=== PATIENT | female | born 1960 | race Caucasian/White ===

== ENCOUNTER 2016-12-31 00:17 | Inpatient (IN) | payer OTHER ==
[2016-12-31] VITALS (11 sets, daily range): BP systolic 113–141; BP diastolic 61–75; PULSE 57–72; RESP 17–56; Ht 160 cm; Wt 91.0 kg
[~2016-12-31] VITALS: Ht 160 cm; Wt 91.0 kg
[~2016-12-31 00:17] MED LIST: LEVO75TA5 PO; LISI-313 PO; SIMV10TA PO
[2016-12-31] MEDS ORDERED: LORAZEPAM 0.5 MG TAB PO PRN (01:00)
[2016-12-31] MEDS ORDERED: NITROGLYCERIN (SL) 0.4 MG TAB SL PRN (01:00)
[2016-12-31] MEDS ORDERED: ALBUTEROL/IPRATROPIUM (NEB) 3 ML AMP NEB SCH (01:00)
[2016-12-31] MEDS ORDERED: NACL 0.9% 3 ML SYG IV SCH (01:00)
[2016-12-31] MEDS ORDERED: ACETAMINOPHEN 325 MG TAB PO PRN (01:00)
[2016-12-31] MEDS ORDERED: ONDANSETRON 4 MG INJ IV PRN (01:00)
[2016-12-31] MEDS ORDERED: morphine 2 MG INJ IV PRN (01:00)
[2016-12-31] MEDS ORDERED: CEFTRIAXONE 1 GM/50 ML (PMX) 50 ML IV SCH (01:00)
[2016-12-31] MEDS ORDERED: ONDANSETRON 4 MG TAB PO PRN (01:00)
--- NOTE | 2016-12-31 03:50 | HP ---
Date/Time of Note Date/Time of Note DATE: 12/31/16 TIME: 03:07 Assessment/Plan VTE Prophylaxis VTE Prophylaxis Intervention: other (Lovanox) Lines/Catheters IV Catheter Type (from [facility]): Peripheral IV Assessment/Plan Assessment/Plan 1) Dyspnea on Exertion - Admit to Telemetry - NPO, just in case a Nuclear Stress Test or similar study is planned once she is evaluated by Cardiology - CONSULT: Cardiology 2) Chest Pain - resolved 3) Family history of Sudden Cardiac HPI/ROS Admit Date/Time Admit Date/Time Dec 31, 2016 at 00:17 Hx of Present Illness CC: They sent me here for a Nuclear Stress Test HPI: Patient is transferred her from [facility] as she is capitated here and she was stable for transfer. Patient initially presented there for increasing shortness of breath with activity associated with skipped beats/ palpitations. Patient states she has had these skipped beats for a long time, but they have become more noticeable over this past week as she has become more SOB with exertion. She lives in a 3-story house, and climbing the stairs makes her extremely SOB and causes her right leg to hurt.. Right now, she has no chest pain or leg pain "because they gave me an aspirin. She has had no nausea, vomiting, sweating or back pain, but 12/29/16, she became extremely fatigued..She also mentions that she had an area of numbness on her right anterior thig, and ittoo, has resolved. She had a cardiac work-up about 5 years ago at this hospital, and nothing particular was found, per patient. Of concern is that both of her parents young, from heart attacks. Her mom was 48 and her father 51. The history and ER course as by the [facility] ER Physician: Her initial complaints were of palpitations, intermittent for 2 days, exertional SOB and episodes of chest pains. On arrival to their ER, her chest pain was a 2/10 on the pain scale. He states that she presented with palpitations and feels them for just 1 to 2 seconds in the heart area. The onset was 3 days ago. He course/duration of symptoms is episodic: 40 total episodes and lasting 2 seconds. Character of symptoms, skipping beats. The degree at onset was minimal. The degree at present is minimal. He documented that she had no risk factors, that there were no prior episodes and no associated symptoms. ROS Constitutional: fatigue, No chills, No febrile Eyes: No discharge, No visual change ENT: No congestion, No discharge, No sore throat Respiratory: shortness of breath (with exertion), No cough, No pain, No wheezing Cardiovascular: palpitations (occasional), No chest pain (Not currently), No edema Gastrointestinal: No diarrhea, No nausea, No pain, No vomiting Skin: No pruritis, No rash Neurologic: No confusion, No dizziness, No headache, No syncope Endocrine: No polydypsia, No polyuria Lymphatic: No adenopathy, No tender nodes Immunologic: No pruritis, No rhinitis PMH/Family/Social Family History Significant Family History: heart disease (Both parents young, from MIs - Mom 48 and Dad 51) Social History Alcohol Use: none Smoking Status: Never smoker Drug Use: none Exam/Review of Systems Vital Signs Vitals Vital Signs Date Time Temp Pulse Resp B/P Pulse Ox O2 Delivery O2 Flow Rate FiO2 12/31/16 00:36 98.8 64 18 141/70 95 Exam Constitutional: alert, oriented, well developed Psych: nl mood/affect, no complaints Head: atraumatic, normocephalic Eyes: EOMI, nl conjunctiva, nl sclera ENMT: mucosa pink and moist, nl external ears & nose Neck: non-tender, supple Respiratory: clear to auscultation, normal air movement Cardiovascular: nl pulses, regular rate and rhythm, No edema Gastrointestinal: nl liver, spleen, non-tender, soft Musculoskeletal: nl extremities to inspection Extremities: normal pulses Neurological: EQUITY DIRECTOR II-XII intact, nl mental status, nl speech, nl strength Skin: nl turgor, No rash or lesions Lymph: nl lymph nodes (Cervical) Medications Medications Current Medications Lorazepam (Ativan) 0.5 mg Q8H PRN PO ANXIETY; Start 12/31/16 at 01:00 Ondansetron HCl (Zofran Tab) 4 mg Q6H PRN PO NAUSEA AND/OR VOMITING; Start at 01:00 Ondansetron HCl (Zofran Inj) 4 mg Q6H PRN IV NAUSEA AND/OR VOMITING; Start at 01:00 Aspirin (Aspirin) 81 mg DAILY PO ; Start 12/31/16 at 09:00 Nitroglycerin (Nitroglycerin (Sl Tab) 0.4 Mg) 1 tab Q5M PRN SL CHEST PAIN; Start 12/31/16 at 01:00 Acetaminophen (Tylenol Tab) 650 mg Q6H PRN PO PAIN LEVEL 1-3 OR FEVER; Start at 01:00 Morphine Sulfate (morphine) 2 mg Q4H PRN IV PAIN LEVEL 7-10; Start 12/31/16 at 01:00 Famotidine (Pepcid) 20 mg Q12 PO ; Start 12/31/16 at 09:00 Lisinopril (Zestril) 5 mg DAILY PO ; Start 12/31/16 at 09:00 Procedures Procedures Labs from [facility] done 12/30/16 WBC = 5.0 with normal differential H/H = 14.3/41.0 with normal indices PLT = 207 Na+ = 140 K+ = 3.3 (given replacement in the [facility] ER Cl- = 104 HCO3 = 26 BUN/CR = 18/0.8 Glu = 132 (random) Lactic Acid = 1.8 D-Dimer = 0.26 Troponin = 0.0 BNP = 66 INR = 1.00 Mononucleosis Screen: NEGATIVE AST = 34 ALT = 27 Mg = 2.1 Remainder of CMP is WNL CXR done at [facility] showed no acute disease process as interpreted by the ER physician EKG, I do not see a report on the firstEKG, other than it is listed as "abnormal " 2nd EKG shows NSR without any ST-T wave changes DEBORAH CHRISTIAN DO Dec 31, 2016 03:20
[2016-12-31] MEDS: SOD CHLORIDE 0.9% 1,000 ML IV SCH ×3 (04:23→23:24)
[2016-12-31 08:27] LABS: CREATINE KINASE 89 IU/L (23-200)
[2016-12-31 08:32] LABS: ADD SCAN DIFF NO
[2016-12-31 08:37] LABS: CK-MB 0.42 ng/ml (0.0-2.4)
[2016-12-31 08:38] LABS: BASOPHIL # 0.1 10^3/ul (0.0-0.1); BASOPHILS % 1.3 % (0.0-2.0); EOSINOPHILS # 0.3 10^3/ul (0.0-0.5); HEMATOCRIT 38.7 % (37.0-47.0); HEMOGLOBIN 12.9 g/dl (12.0-16.0); LYMPHOCYTES # 1.9 10^3/ul (0.8-2.9); MEAN CORPUSCULAR HEMOGLOBIN 30.1 pg (29.0-33.0); MEAN CORPUSCULAR HGB CONC 33.3 g/dl (32.0-37.0); MEAN CORPUSCULAR VOLUME 90.2 fl (82.0-101.0); MEAN PLATELET VOLUME 10.2 fl (7.4-10.4); MONOCYTE # 0.3 10^3/ul (0.3-0.9); MONOCYTES % 6.9 % (0.0-11.0); NEUTROPHIL # 1.9 10^3/ul (1.6-7.5); NEUTROPHILS % 42.6 % (39.0-77.0); PLATELET COUNT 191 10^3/UL (140-415); RED BLOOD COUNT 4.29 10^6/ul (4.20-5.40); RED CELL DISTRIBUTION WIDTH 12.7 % (11.5-14.5); WHITE BLOOD COUNT 4.5 10^3/ul (4.8-10.8)
[2016-12-31 08:56] LABS: POTASSIUM 3.6 mmol/L (3.5-5.1)
[2016-12-31 08:59] LABS: CREATININE 0.71 mg/dl (0.44-1.00)
[2016-12-31 09:00] LABS: CREATINE KINASE 80 IU/L (23-200)
[2016-12-31 09:01] LABS: TROPONIN-I < 0.012 ng/ml (0.00-0.12)
[2016-12-31 09:10] LABS: CK-MB 0.34 ng/ml (0.0-2.4)
[2016-12-31 09:16] LABS: TROPONIN-I < 0.012 ng/ml (0.00-0.12)
[2016-12-31] MEDS: LISINOPRIL 5 MG TAB PO SCH (09:33)
[2016-12-31] MEDS: FAMOTIDINE 20 MG TAB PO SCH ×2 (09:33→21:34)
[2016-12-31] MEDS: ASPIRIN 81 MG TAB PO SCH (09:33)
[2016-12-31] MEDS: LEVOTHYROXINE 75 MCG TAB PO SCH (09:35)
[2016-12-31] MEDS: ENOXAPARIN 40 MG/0.4 ML SYG SC SCH (09:42)
--- NOTE | 2016-12-31 13:38 | PN ---
Date/Time of Note Date/Time of Note DATE: 12/31/16 TIME: 13:28 Assessment/Plan VTE Prophylaxis VTE Prophylaxis Intervention: LMWH Lines/Catheters IV Catheter Type (from [facility]): Peripheral IV Assessment/Plan Assessment/Plan 1. Palpitation with generalized weakness, r/o arrhythmia, monitor ECG, check TSH, cardiology consultation 2. Chest pain, negative troponin, follow up with cardiology 3. Hypertension, stable 4. Dyslipidemia, on statin 5. Hypothyroidism, on supplement 6. Family history of Sudden Cardiac 7. DVT prophylaxis: lovenox Subjective 24 Hr Interval Summary Free Text/Dictation intermittent palpitation with genralized weakness for one week. Lower retrosternal chest pain Exam/Review of Systems Vital Signs Vitals Vital Signs Date Time Temp Pulse Resp B/P Pulse Ox O2 Delivery O2 Flow Rate FiO2 12/31/16 12:51 57 12/31/16 11:45 98.9 56 113/61 96 Intake and Output 12/30/16 12/30/16 12/31/16 15:00 23:00 07:00 Intake Total 300 ml Balance 300 ml Exam Constitutional: alert, oriented, well developed Psych: nl mood/affect, no complaints Head: atraumatic, normocephalic Eyes: EOMI, PERRL, nl conjunctiva, nl lids ENMT: nl external ears & nose, nl lips & teeth, nl nasal mucosa & septum Neck: non-tender, supple Respiratory: clear to auscultation, normal air movement, No congested cough, No crackles/rales, No diminished breath sounds, No intercostal retraction, No labored breathing, No other, No respirations, No tactile fremitus, No wheezing Cardiovascular: nl pulses, regular rate and rhythm, No S3, No S4, No bruits, No diastolic murmur, No edema, No gallop, No irregular rhythm, No jugular venous distention (JVD), No murmurs/extra sounds, No other, No rub, No systolic murmur Gastrointestinal: nl liver, spleen, non-tender, soft, No ascites, No bowel sounds, No distended, No firm, No hepatomegaly, No mass , No other, No rebound or guarding, No splenomegaly, No surgical scars, No tender Musculoskeletal: nl extremities to inspection Extremities: normal pulses, No calf tenderness, No clubbing, No cyanosis, No edema, No other, No palpable cord, No pitting pedal edema, No tenderness Neurological: NAILHEAD PUNCHER II-XII intact, nl mental status, nl speech, nl strength Skin: nl turgor Lymph: nl lymph nodes Results Result Diagram: 12/31/1614 12/31/1614 Results 24 hrs Laboratory Tests Test 12/31/16 01:03 12/31/16 07:14 Creatine Kinase 89 80 Creatine Kinase Index 0.5 0.4 Creatinine Kinase MB (Mass) 0.42 0.34 Troponin I < 0.012 < 0.012 Anion Gap 15 Basophils # 0.1 Basophils % 1.3 Blood Urea Nitrogen 14 Calcium Level 9.0 Carbon Dioxide Level 31 Chloride Level 101 Creatinine 0.71 Eosinophils # 0.3 Eosinophils % 6.0 Glucose Level 82 Hematocrit 38.7 Hemoglobin 12.9 Lymphocytes # 1.9 Lymphocytes % 43.0 Magnesium Level 2.0 Mean Corpuscular Hemoglobin 30.1 Mean Corpuscular Hemoglobin Concent 33.3 Mean Corpuscular Volume 90.2 Mean Platelet Volume 10.2 Monocytes # 0.3 Monocytes % 6.9 Neutrophils # 1.9 Neutrophils % 42.6 Nucleated Red Blood Cells # 0.0 Nucleated Red Blood Cells % 0.0 Platelet Count 191 Potassium Level 3.6 Red Blood Count 4.29 Red Cell Distribution Width 12.7 Sodium Level 143 White Blood Count 4.5 L Medications Medications Current Medications Lorazepam (Ativan) 0.5 mg Q8H PRN PO ANXIETY; Start 12/31/16 at 01:00 Ondansetron HCl (Zofran Tab) 4 mg Q6H PRN PO NAUSEA AND/OR VOMITING; Start at 01:00 Ondansetron HCl (Zofran Inj) 4 mg Q6H PRN IV NAUSEA AND/OR VOMITING; Start at 01:00 Aspirin (Aspirin) 81 mg DAILY PO Last administered on 12/31/16t 09:33; Admin Dose 81 MG; Start 12/31/16 at 09:00 Nitroglycerin (Nitroglycerin (Sl Tab) 0.4 Mg) 1 tab Q5M PRN SL CHEST PAIN; Start 12/31/16 at 01:00 Acetaminophen (Tylenol Tab) 650 mg Q6H PRN PO PAIN LEVEL 1-3 OR FEVER; Start at 01:00 Morphine Sulfate (morphine) 2 mg Q4H PRN IV PAIN LEVEL 7-10; Start 12/31/16 at 01:00 Famotidine (Pepcid) 20 mg Q12 PO Last administered on 12/31/16 09:33; Admin Dose 20 MG; Start 12/31/16 at 09:00 Lisinopril 5 mg 5 mg DAILY PO Last administered on 12/31/16 09:33; Admin Dose 5 MG; Start 12/31/16 at 09:00 Sodium Chloride (NS) 1,000 ml @ 100 mls/hr Q10H IV Last administered on 04:23; Admin Dose 100 MLS/HR; Start 12/31/16 at 03:24 Enoxaparin Sodium (Lovenox) 40 mg DAILY SC Last administered on 12/31/16 09:42 ; Admin Dose 40 MG; Start 12/31/16 at 09:00 TENZIN BAUTISTA MD Dec 31, 2016 13:37
--- NOTE | 2016-12-31 18:33 | CONS ---
Date/Time of Note Date/Time of Note DATE: 12/31/16 TIME: 18:19 Assessment/Plan Assessment/Plan Chief Complaint/Hosp Course Assessment: Chest pain and dyspnea on exertion - ruled out for myocardial infarction Hypertension Dyslipidemia Family history of premature coronary artery disease Hypothyroidism - per primary team Recommendations: -Lexiscan SPECT tomorrow -continue lisinopril 5mg daily -continue aspirin and statin Problems: Consultation Date/Type/Reason Admit Date/Time Dec 31, 2016 at 00:17 Type of Consultation: Cardiology Reason for Consultation chest pain Hx of Present Illness The patient is a 56 year-old female who initially presented to [facility] for dyspnea and was transferred here due to her insurance capitation. She reports a one week history of worsening dyspnea on exertion with associated chest pressure and palpitations. She lives in a three-story house and previously had no trouble climbing up the stairs without much difficulty until this past week. She had a cardiac stress test and coronary angiogram approximately 10 years ago , which were normal. 14 point review of systems negative other than per HPI. Past Medical History Hypertension Dyslipidemia Hypothyroidism Past Surgical History Past Surgical Hx: no surgical history Family History Significant Family History: heart disease (myocardial infarction - mother at age 48, father at age 51) Social History Alcohol Use: none Smoking Status: Never smoker Drug Use: none Exam/Review of Systems Vital Signs Vitals Vital Signs Date Time Temp Pulse Resp B/P Pulse Ox O2 Delivery O2 Flow Rate FiO2 12/31/16 16:35 69 12/31/16 15:53 97.8 19 119/75 95 Intake and Output 12/30/16 12/30/16 12/31/16 15:00 23:00 07:00 Intake Total 300 ml Balance 300 ml Exam Constitutional: alert, oriented, well developed Psych: nl mood/affect, no complaints Eyes: nl conjunctiva, nl lids ENMT: nl external ears & nose, nl nasal mucosa & septum Neck: non-tender, supple, No jvd Respiratory: clear to auscultation, normal air movement Cardiovascular: regular rate and rhythm Gastrointestinal: non-tender, soft Musculoskeletal: nl extremities to inspection Extremities: No clubbing, No cyanosis, No edema Neurological: nl mental status, nl speech Results Result Diagram: 12/31/16 0714 12/31/16 0714 Results 24 hrs Laboratory Tests Test 12/31/16 01:03 12/31/16 07:14 12/31/16 07:15 Creatine Kinase 89 80 Creatine Kinase Index 0.5 0.4 Creatinine Kinase MB (Mass) 0.42 0.34 Troponin I < 0.012 < 0.012 Anion Gap 15 Basophils # 0.1 Basophils % 1.3 Blood Urea Nitrogen 14 Calcium Level 9.0 Carbon Dioxide Level 31 Chloride Level 101 Creatinine 0.71 Eosinophils # 0.3 Eosinophils % 6.0 Glucose Level 82 Hematocrit 38.7 Hemoglobin 12.9 Lymphocytes # 1.9 Lymphocytes % 43.0 Magnesium Level 2.0 Mean Corpuscular Hemoglobin 30.1 Mean Corpuscular Hemoglobin Concent 33.3 Mean Corpuscular Volume 90.2 Mean Platelet Volume 10.2 Monocytes # 0.3 Monocytes % 6.9 Neutrophils # 1.9 Neutrophils % 42.6 Nucleated Red Blood Cells # 0.0 Nucleated Red Blood Cells % 0.0 Platelet Count 191 Potassium Level 3.6 Red Blood Count 4.29 Red Cell Distribution Width 12.7 Sodium Level 143 White Blood Count 4.5 L Thyroid Stimulating Hormone (TSH) 7.530 H Medications Medications Current Medications Lorazepam (Ativan) 0.5 mg Q8H PRN PO ANXIETY; Start 12/31/16 at 01:00 Ondansetron HCl (Zofran Tab) 4 mg Q6H PRN PO NAUSEA AND/OR VOMITING; Start at 01:00 Ondansetron HCl (Zofran Inj) 4 mg Q6H PRN IV NAUSEA AND/OR VOMITING; Start at 01:00 Aspirin (Aspirin) 81 mg DAILY PO Last administered on 12/31/16 09:33; Admin Dose 81 MG; Start 12/31/16 at 09:00 Nitroglycerin (Nitroglycerin (Sl Tab) 0.4 Mg) 1 tab Q5M PRN SL CHEST PAIN; Start 12/31/16 at 01:00 Acetaminophen (Tylenol Tab) 650 mg Q6H PRN PO PAIN LEVEL 1-3 OR FEVER; Start at 01:00 Morphine Sulfate (morphine) 2 mg Q4H PRN IV PAIN LEVEL 7-10; Start 12/31/16 at 01:00 Famotidine (Pepcid) 20 mg Q12 PO Last administered on 12/31/16 09:33; Admin Dose 20 MG; Start 12/31/16 at 09:00 Lisinopril 5 mg 5 mg DAILY PO Last administered on 12/31/16 09:33; Admin Dose 5 MG; Start 12/31/16 at 09:00 Sodium Chloride (NS) 1,000 ml @ 100 mls/hr Q10H IV Last administered on 04:23; Admin Dose 100 MLS/HR; Start 12/31/16 at 03:24 Enoxaparin Sodium (Lovenox) 40 mg DAILY SC Last administered on 12/31/16 09:42 ; Admin Dose 40 MG; Start 12/31/16 at 09:00 YESENIA VILLASENOR MD Dec 31, 2016 18:30
[2016-12-31] MEDS ORDERED: ATORVASTATIN 10 MG TAB PO SCH (21:00)
[2017-01-01] VITALS (10 sets, daily range): BP systolic 113–150; BP diastolic 68–80; PULSE 58–82; RESP 16–19
[2017-01-01 07:47] LABS: ADD SCAN DIFF NO
[2017-01-01 07:58] LABS: BASOPHIL # 0.1 10^3/ul (0.0-0.1); BASOPHILS % 1.1 % (0.0-2.0); EOSINOPHILS # 0.2 10^3/ul (0.0-0.5); EOSINOPHILS % 5.3 % (0.0-7.0); HEMATOCRIT 37.3 % (37.0-47.0); HEMOGLOBIN 12.8 g/dl (12.0-16.0); LYMPHOCYTES # 1.7 10^3/ul (0.8-2.9); LYMPHOCYTES % 38.7 % (15.0-51.0); MEAN CORPUSCULAR HEMOGLOBIN 30.5 pg (29.0-33.0); MEAN CORPUSCULAR HGB CONC 34.3 g/dl (32.0-37.0); MONOCYTE # 0.3 10^3/ul (0.3-0.9); MONOCYTES % 7.3 % (0.0-11.0); NEUTROPHIL # 2.1 10^3/ul (1.6-7.5); NEUTROPHILS % 47.4 % (39.0-77.0); PLATELET COUNT 206 10^3/UL (140-415); RED BLOOD COUNT 4.19 10^6/ul (4.20-5.40); RED CELL DISTRIBUTION WIDTH 12.4 % (11.5-14.5); WHITE BLOOD COUNT 4.4 10^3/ul (4.8-10.8)
[2017-01-01 08:12] LABS: POTASSIUM 3.6 mmol/L (3.5-5.1)
[2017-01-01 08:14] LABS: CREATININE 0.73 mg/dl (0.44-1.00)
[2017-01-01 08:15] LABS: CALCIUM 8.7 mg/dl (8.4-10.2)
[2017-01-01] MEDS: ENOXAPARIN 40 MG/0.4 ML SYG SC SCH (08:54)
[2017-01-01] MEDS: ASPIRIN 81 MG TAB PO SCH (08:54)
[2017-01-01] MEDS: LEVOTHYROXINE 75 MCG TAB PO SCH (08:55)
[2017-01-01] MEDS: FAMOTIDINE 20 MG TAB PO SCH (08:55)
[2017-01-01] MEDS: LISINOPRIL 5 MG TAB PO SCH (08:55)
[2017-01-01] MEDS: SOD CHLORIDE 0.9% 1,000 ML IV SCH (09:24)
[2017-01-01] MEDS ORDERED: REGADENOSON 0.4 MG/5 ML SYG ONE (12:49)
[2017-01-01] MEDS ORDERED: REGADENOSON 0.4 MG/5 ML SYG IV ONE (13:00)
--- NOTE | 2017-01-01 14:29 | RADRPT ---
PROCEDURE: Nuclear medicine myocardial perfusion scan CLINICAL INDICATION: Chest pain TECHNIQUE: 31.6 mCi of technetium 99m Cardiolite was administered for the stress study. 11.0 mCi of technetium 99m Cardiolite was administered for the resting study. The patient was stressed with 0 .4 mg of Lexiscan. Images were reviewed in the short axis, vertical long axis, and horizontal long axis views. Wall motion was assessed and ejection fraction was calculated as well. Images were revi ewed on a high-resolution PACS workstation. COMPARISON: None available FINDINGS: Left ventricular size is within normal limits. There is moderate soft tissue and bowel attenuation artifact. The stress tomographic images demonstrate a normal pattern of perfusion. The resting lori ographic images demonstrate a similar pattern. There is no evidence for reversible ischemia. Wall motion is normal. The ejection fraction is calculated at 65%. IMPRESSION: 1. Negative myocardial perfusion scan. 2. There is no evidence for reversible ischemia. 3. Normal wall motion with normal ejection fraction of 65%. RPTAT: HMJB .Abel Lemos MD, MD Date Time Electronically viewed and signed by .Abel Lemos MD, MD on 01/01/2017 14:28 .B/
--- NOTE | 2017-01-01 15:07 | CONS ---
Date/Time of Note Date/Time of Note DATE: 01/01/17 TIME: 15:04 Assessment/Plan Assessment/Plan Chief Complaint/Hosp Course Assessment: Chest pain and dyspnea on exertion - ruled out for myocardial infarction, Lexiscan SPECT negative Palpitations - occasional PVCs, no sustained arrhythmia on telemetry Hypertension Dyslipidemia Family history of premature coronary artery disease Hypothyroidism - per primary team Recommendations: -continue lisinopril 5mg daily -continue aspirin and statin -no further cardiac work up at this time Problems: Consultation Date/Type/Reason Admit Date/Time Dec 31, 2016 at 00:17 Initial Consult Date Type of Consultation: Cardiology 24 HR Interval Summary Free Text/Dictation No acute events. No further chest pain or dyspnea. Lexiscan SPECT today negative for ischemia, LVEF 65%. Detailed Summary Additional Comments 14 point review of systems without changes. Exam/Review of Systems Vital Signs Vitals Vital Signs Date Time Temp Pulse Resp B/P Pulse Ox O2 Delivery O2 Flow Rate FiO2 01/01/17 13:05 97.7 60 18 137/76 96 Intake and Output 12/31/16 12/31/16 01/01/17 15:00 23:00 07:00 Intake Total 250 ml 500 ml Balance 250 ml 500 ml Exam Constitutional: alert, oriented, well developed Psych: nl mood/affect, no complaints Eyes: nl conjunctiva, nl lids ENMT: nl external ears & nose, nl nasal mucosa & septum Neck: non-tender, supple, No jvd Respiratory: clear to auscultation, normal air movement Cardiovascular: regular rate and rhythm Gastrointestinal: non-tender, soft Musculoskeletal: nl extremities to inspection Extremities: No clubbing, No cyanosis, No edema Neurological: nl mental status, nl speech Results Result Diagram: 01/01/17 0725 01/01/17 0725 Results 24 hrs Laboratory Tests Test 01/01/17 07:25 Anion Gap 14 Basophils # 0.1 Basophils % 1.1 Blood Urea Nitrogen 17 Calcium Level 8.7 Carbon Dioxide Level 28 Chloride Level 105 Creatinine 0.73 Eosinophils # 0.2 Eosinophils % 5.3 Glucose Level 98 Hematocrit 37.3 Hemoglobin 12.8 Lymphocytes # 1.7 Lymphocytes % 38.7 Mean Corpuscular Hemoglobin 30.5 Mean Corpuscular Hemoglobin Concent 34.3 Mean Corpuscular Volume 89.0 Mean Platelet Volume 10.0 Monocytes # 0.3 Monocytes % 7.3 Neutrophils # 2.1 Neutrophils % 47.4 Nucleated Red Blood Cells # 0.0 Nucleated Red Blood Cells % 0.0 Platelet Count 206 Potassium Level 3.6 Red Blood Count 4.19 L Red Cell Distribution Width 12.4 Sodium Level 143 White Blood Count 4.4 L Medications Medications Current Medications Lorazepam (Ativan) 0.5 mg Q8H PRN PO ANXIETY; Start 12/31/16 at 01:00 Ondansetron HCl (Zofran Tab) 4 mg Q6H PRN PO NAUSEA AND/OR VOMITING; Start at 01:00 Ondansetron HCl (Zofran Inj) 4 mg Q6H PRN IV NAUSEA AND/OR VOMITING; Start at 01:00 Aspirin (Aspirin) 81 mg DAILY PO Last administered on 01/01/17 08:54; Admin Dose 81 MG; Start 12/31/16 at 09:00 Nitroglycerin (Nitroglycerin (Sl Tab) 0.4 Mg) 1 tab Q5M PRN SL CHEST PAIN; Start 12/31/16 at 01:00 Acetaminophen (Tylenol Tab) 650 mg Q6H PRN PO PAIN LEVEL 1-3 OR FEVER; Start at 01:00 Morphine Sulfate (morphine) 2 mg Q4H PRN IV PAIN LEVEL 7-10; Start 12/31/16 at 01:00 Famotidine (Pepcid) 20 mg Q12 PO Last administered on 01/01/17 08:55; Admin Dose 20 MG; Start 12/31/16 at 09:00 Lisinopril 5 mg 5 mg DAILY PO Last administered on 01/01/17 08:55; Admin Dose 5 MG; Start 12/31/16 at 09:00 Sodium Chloride (NS) 1,000 ml @ 100 mls/hr Q10H IV Last administered on 04:23; Admin Dose 100 MLS/HR; Start 12/31/16 at 03:24 Enoxaparin Sodium (Lovenox) 40 mg DAILY SC Last administered on 01/01/17 08:54 ; Admin Dose 40 MG; Start 12/31/16 at 09:00 Atorvastatin Calcium (Lipitor) 10 mg HS PO ; Start 12/31/16 at 21:00 YESENIA VILLASENOR MD Jan 01, 2017 15:06
[2017-01-01] MEDS ORDERED: SYN1 PO (15:51)
--- NOTE | 2017-01-01 15:58 | DS ---
Date/Time of Note Date/Time of Note DATE: 01/01/17 TIME: 15:52 Discharge Summary Admission/Discharge Info Admit Date/Time Dec 31, 2016 at 00:17 Discharge Date/Time Final Diagnosis 1. Chest pain, stress test 3. Hypertension, stable 4. Dyslipidemia, on statin 5. Hypothyroidism, TSH 7.5, increase synthroid Patient Condition: Stable Hx of Present Illness Patient is transferred her from [facility] as she is capitated here and she was stable for transfer. Patient initially presented there for increasing shortness of breath with activity associated with skipped beats/palpitations. Patient states she has had these skipped beats for a long time, but they have become more noticeable over this past week as she has become more SOB with exertion. She lives in a 3-story house, and climbing the stairs makes her extremely SOB and causes her right leg to hurt.. Right now, she has no chest pain or leg pain "because they gave me an aspirin. She has had no nausea, vomiting, sweating or back pain, but 12/29/16, she became extremely fatigued..She also mentions that she had an area of numbness on her right anterior thig, and ittoo, has resolved. She had a cardiac work-up about 5 years ago at this hospital, and nothing particular was found, per patient. Of concern is that both of her parents young, from heart attacks. Her mom was 48 and her father 51. The history and ER course as by the [facility] ER Physician: Her initial complaints were of palpitations, intermittent for 2 days, exertional SOB and episodes of chest pains. On arrival to their ER, her chest pain was a 2/10 on the pain scale. He states that she presented with palpitations and feels them for just 1 to 2 seconds in the heart area. The onset was 3 days ago. He course/duration of symptoms is episodic: 40 total episodes and lasting 2 seconds. Character of symptoms, skipping beats. The degree at onset was minimal. The degree at present is minimal. He documented that she had no risk factors, that there were no prior episodes and no associated symptoms. Hospital Course Chest pain is atypical for angina. Patient has a stress thallium test on 01/01. Patient has a TSH level of 7.53. I increase her synthroid from 75 mcg to 100 mcg daily. Patient's generalized weakness, fatigue/lack of energy are likely from hypothyroidism. Follow up with PCP for further dosage adjustment. Home Meds Active Scripts Levothyroxine Sodium* (Synthroid*) 100 Mcg Tablet, 100 MCG PO BEFORE BREAKFAST, #30 TAB Prov:TENZIN BAUTISTA MD 01/01/17 Reported Medications Lisinopril* (Lisinopril*) 5 Mg Tablet, 5 MG PO DAILY, TAB 06/23/14 Simvastatin* (Zocor*) 10 Mg Tablet, 10 MG PO HS, TAB 06/23/14 Discontinued Reported Medications Levothyroxine Sodium* (Levothyroxine Sodium*) 75 Mcg Tablet, 75 MCG PO AC BREAKFAST, TAB 06/23/14 Follow-up Plan PCP in one week Pending Labs Laboratory Tests Test 01/01/17 07:25 Anion Gap 14 (8-16) Basophils # 0.110^3/ul (0.0-0.1) Basophils % 1.1% (0.0-2.0) Blood Urea Nitrogen 17mg/dl (7-20) Calcium Level 8.7mg/dl (8.4-10.2) Carbon Dioxide Level 28mmol/L (21-31) Chloride Level 105mmol/L (97-110) Creatinine 0.73mg/dl (0.44-1.00) Eosinophils # 0.210^3/ul (0.0-0.5) Eosinophils % 5.3% (0.0-7.0) Glucose Level 98mg/dl (70-220) Hematocrit 37.3% (37.0-47.0) Hemoglobin 12.8g/dl (12.0-16.0) Lymphocytes # 1.710^3/ul (0.8-2.9) Lymphocytes % 38.7% (15.0-51.0) Mean Corpuscular Hemoglobin 30.5pg (29.0-33.0) Mean Corpuscular Hemoglobin Concent 34.3g/dl (32.0-37.0) Mean Corpuscular Volume 89.0fl (82.0-101.0) Mean Platelet Volume 10.0fl (7.4-10.4) Monocytes # 0.310^3/ul (0.3-0.9) Monocytes % 7.3% (0.0-11.0) Neutrophils # 2.110^3/ul (1.6-7.5) Neutrophils % 47.4% (39.0-77.0) Nucleated Red Blood Cells # 0.010^3/ul (0.0-0.0) Nucleated Red Blood Cells % 0.0/100WBC (0.0-0.0) Platelet Count 94224^3/UL (140-415) Potassium Level 3.6mmol/L (3.5-5.1) Red Blood Count 4.1910^6/ul (4.20-5.40) Red Cell Distribution Width 12.4% (11.5-14.5) Sodium Level 143mmol/L (135-144) White Blood Count 4.410^3/ul (4.8-10.8) TENZIN BAUTISTA MD Jan 01, 2017 15:58
[2017-01-02] MEDS ORDERED: LEVOTHYROXINE 25 MCG TAB PO SCH (06:00)
[2017-01-02] MEDS ORDERED: LEVOTHYROXINE 100 MCG TAB PO SCH (07:30)
--- NOTE | 2017-01-02 20:19 | CARRPT ---
DATE OF PROCEDURE: 01/01/2017 PROCEDURE: Lexiscan stress SPECT. INDICATIONS: Chest pain. FINDINGS: Baseline heart rate 58 beats per minute. Peak heart rate 90 beats per minute. Baseline blood pressure 146/83. Peak blood pressure 170/78. Baseline EKG: Sinus rhythm; otherwise, normal EKG. Stress EKG: Normal sinus rhythm. No ischemic ST-segment or T-wave changes. Isolated PVC. No sustained arrhythmias. CONCLUSIONS: Normal EKG results of Lexiscan stress test. Imaging results to be reported separately. Dictated By: YESENIA VILLASENOR MD SC/PELON Conf#: [id number] DID#: [id number]
== END 2017-01-01 19:09 | disposition home or self-care (01) | DRG 313 ==
LOC: MS4 00:17
PROVIDERS: ADMIT Family Medicine; ATTEND Family Medicine
DX: R07.89 Other chest pain (principal); I10 Essential (primary) hypertension; E78.5 Hyperlipidemia, unspecified; E03.8 Other specified hypothyroidism; R06.02 Shortness of breath
CPT/HCPCS: 78452; 80048; 82550; 82553; 83735; 84443; 84484; 85025; 93017; A9500; A9505; J1650; J2785; J7030